=== PATIENT | male | born 1970 | race Caucasian/White ===

== ENCOUNTER → 2025-01-03 15:41 | Outpatient (REF) | payer BC, SELFPAY | LOC: HWRCS 15:41 | PROVIDERS: ATTENDING PHYSICIAN Internal Medicine Cardiovascular Disease; FAMILY PHYSICIAN Internal Medicine | DX: I47.10 Supraventricular tachycardia, unspecified (principal); R06.02 Shortness of breath | CPT/HCPCS: 93306 ==

== ENCOUNTER 2025-02-20 08:31 | Day surgery (SDC) | payer BC, SELFPAY ==
[2025-01-23 09:08] VITALS: BMI 25.8
[2025-01-23 09:39] LABS: Hematocrit 41.9 % (39.0-52.0); Hemoglobin 14.4 g/dL (13.0-18.0); Mean Corp Hgb Conc. 34.4 g/dL (33.0-37.0); Mean Corpuscular Volume 83.8 fL (80.0-94.0); Nucleated Red Blood Cells % 0 % (-); Platelet Count 278 10^3/uL (130-400); Red Cell Dist. Width 12.2 % (11.5-14.5)
[2025-01-23 09:43] LABS: ALT (SGPT) 38 U/L (0-50); AST (SGOT) 28 U/L (17-59); Albumin 4.7 g/dl (3.5-5.0); Alkaline Phosphatase 59 U/L (38-126); Blood Urea Nitrogen 15 mg/dl (9-20); Calcium 9.6 mg/dl (8.4-10.2); Carbon Dioxide 29 mmol/L (22-30); Chloride 102 mmol/L (98-107); Estimated Creatinine Clearance 62 ml/min; Glucose 99 mg/dl (70-99); Magnesium 2.1 mg/dl (1.6-2.3); Potassium 4.4 mmol/L (3.5-5.1); Sodium 140 mmol/L (135-145); Total Protein 7.7 g/dl (6.3-8.2); eGFR > 60.00
[2025-02-20] VITALS (11 sets, daily range): BP systolic 111–144; BP diastolic 74–95; BMI 25.8
--- NOTE | 2025-02-20 11:12 | ITS.CL.ABL ---
[employer] - Ablation
Ablation
Procedure Report:
Primary Physician: Dr Castillo
Primary Occupational Therapy Aide: Dr Marty Richardson
Procedure Date: 02/20/2025
Procedure
Electrophysiology Study with SVT ablation (46035)
Left atrial recording / pacing
IV drug for arrhythmia induction
Patient History
See H&P for full details
Patient is a pleasant 54 year old male with a past medical history significant for hypertension, palpitations, paroxysmal SVT (narrow complex, short RP terminated with adenosine and vagal maneuvers).
Method:
After informed consent was obtained, the patient was brought to the EP lab in a post-absorptive, non-sedated state. A peripheral IV was in place. Continuous electrocardiography, blood pressure and pulse oximetry monitoring was initiated and
cardioversion / defibrillator electrodes were positioned on the chest in an AP orientation. A 'time-out' was called. Conscious sedation was administered with the assistance of the anesthesia services, and local anesthesia was given at the femoral
vein access sites.
Using modified Seldinger technique, vascular access was achieved and sheaths were placed. Multipolar catheters were advanced to the coronary sinus, His bundle recording position, right ventricle, and high right atrium. Following the determination
of baseline conduction intervals, comprehensive EP study was performed. Pacing and recording from the RV, HBE, and CS / LA was performed.
Procedure Synopsis:
The patient entered the room in sinus rhythm. Following placement of catheters coronary sinus, His bundle region, and RV apex, electrophysiology study was performed. Threshold testing was performed for each catheter. Patient was noted to have VA
Wenckebach cycle length of 670 ms. Patient had an AV melvin one-to-one cycle at the 510 ms. Para-Hisian pacing demonstrated a melvin response. Patient was noted to have initial fast pathway ERP at 600/450 ms with AH jump this persisted. Patient
was noted to have 2 echo beats during this drivetrain and single atrial extrastimulus. Isoproterenol was started. Patient had induction of clinical tachycardia at 600/320 ms. Tachycardia cycle length was 360 ms. This was a narrow complex
tachycardia, a�on�V tachycardia. With ventricular overdrive pacing, a VAV response was noted. PPI minus TCL was greater than 115 with an SA minus VA time of greater than 85. 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 Tachycardia
was terminated with ventricular overdrive pacing. Heparin was given for an ACT 300�400. Short 9 German sheath was exchanged for a steerable 11.5 German sheath. HD advisor grid was advanced into the right atrium. Electroanatomic mapping was
performed of the right atrium and sinus rhythm. Careful attention was placed to the his bundle region, tricuspid annulus, and coronary sinus. Slow pathway was mapped using HD advisor grid. HD grid was removed and TactiFlex SE DF irrigated
ablation catheter was advanced into the right atrium. Ablation was performed in the region of the slow pathway arising no higher than the midpoint of the coronary sinus ostium along the septum with A: V ratio 1:3�1: 5. Ablation was performed at 25
W with careful monitoring of impedance, temperature, and AV conduction. During ablation, patient was noted to have stable junctional with persistent AV conduction. Measurements of AH and HV intervals were performed throughout procedure which
remained unchanged. Following completion of ablation, patient was noted to have persistent one-to-one AV conduction. Isoproterenol was infused. Testing performed demonstrated no AH jump, echo beats, or induction of arrhythmia. 8 minutes after
final ablation lesion, with isoproterenol infusing, patient was noted to have 2: 1 AV conduction. Patient remained hemodynamically stable. Sedation was reduced and isoproterenol was discontinued. Patient had pentecostal of one-to-one conduction
during waiting phase. Change in AV conduction likely related to catheter bump against this bundle with isoproterenol infusion. Following pentecostal of one-to-one conduction, no further episodes of AV block were noted. AH and HV intervals were
measured which remained without significant change from start of procedure. Case was concluded and catheters were removed under fluoroscopy. One-to-one conduction persisted. Protamine was given for reversal. Hemostasis achieved with
ozhkvx-jw-yqtbn suture and manual pressure.
Fluoroscopy time:
5.2 min; 11.57 mGy; DAP 2.21
Total RF time:
8 min 28s
Estimated Blood Loss
5 mL
Complications
None
At the end of the procedure, all catheters and sheaths were removed and hemostasis was assured with jdwyjx-mc-wrndr suture for each groin and manual pressure. The patient was returned to the recovery area in stable condition.
Access Sites:
Left Femoral Vein: 2 sheaths (7 Fr, 6 Fr)
Right Femoral Vein: 2 sheaths (9 Fr upsized to 11.5 Fr, 6 Fr)
Baseline Intervals:
Rhythm: SR
NJ: 164 ms
AH: 86 ms
HV: 46 ms
QRS: 106 ms
QT: 425 ms
QTc: 414 ms
A-A: 1055 ms
R-R: 1055 ms
Post-Procedure Intervals:
NJ: 182 ms
AH: 88 ms
HV: 53 ms
QRS: 99 ms
QT: 366 ms
QTc: 431 ms
A-A: 721 ms
R-R: 721 ms
AV Conduction:
- AVWB: 510 ms
- VAWB: 670 ms
Refractory Periods:
- AVNERP: 600/300 ms
Recommendations:
- Bedrest with straight-leg precautions as ordered
- Admit with anticipate discharge home tomorrow after overnight observation
- Discontinue diltiazem
- Plan for follow-up in office as scheduled
Horace Sharma, , FACC, RS
Clinical Cardiac Electrophysiology
cc: Dr Jer Castillo; Dr Marty Richardson
[2025-02-20 12:23] LABS: ACT-LR - POC 229 Seconds (116-155)
[2025-02-20 12:42] LABS: ACT-LR - POC 343 Seconds (116-155)
[2025-02-20 13:08] LABS: ACT-LR - POC 327 Seconds (116-155)
[2025-02-20 13:39] LABS: ACT-LR - POC 279 Seconds (116-155)
[2025-02-20 14:03] LABS: ACT-LR - POC 260 Seconds (116-155)
[2025-02-20 14:10] LABS: ACT-LR - POC 186 Seconds (116-155)
--- NOTE | 2025-02-20 14:37 | PTCARENOTE ---
Received pt from label tacker. TERE, SR on tele monitor. B/L groin dressings CDI. +pedal pulses. Pt educated on restrictions and expected OOB time. Call contreras within reach.
--- NOTE | 2025-02-20 15:18 | CM ---
Reviewed chart, Met with and Mrs. Sabillon to review discharge plans. He states prior to admission he resides with his spouse in a two story home with six steps to enter. He states he has a full flight of steps to get to bedroom/full bathroom.
He states he has a powder room on the first floor He states prior to admission he was independent with ambulation and adls. He states he does not have any DME in the home. He states he has a prescription plan and uses [facility]. The discharge
plan is to return home with his spouse when medically stable.
--- NOTE | 2025-02-20 22:04 | PTCARENOTE ---
Received pt @ change of shift. AAOx3, VSS-- NSR w/ 1st degree AV block on monitor. Bilateral groin sites clean, dry, and intact. No swelling, ecchymosis, or hematoma present @ this time. Discussed plan of care. Pt verbalizes understanding. Plan of
care ongoing. Call contreras within reach.
--- NOTE | 2025-02-20 23:00 | PTCARENOTE ---
report received from previous RN, walking rounds done. pt ambulatory in room, AAOx4. pt denies any pain at this time. VSS. NSR on monitor, HR 60s-70s. +peripheral pulses. B/L groin sites stable, CDI. B/L breath sounds present. POX 98% on room air.
PIV intact and patent. see worklist for full assessment, VS, and interventions.
[2025-02-21 05:09] VITALS: BP 138/94
[2025-02-21 06:26] LABS: Hematocrit 40.2 % (39.0-52.0); Hemoglobin 13.9 g/dL (13.0-18.0); Mean Corp Hgb Conc. 34.6 g/dL (33.0-37.0); Mean Corpuscular Volume 83.2 fL (80.0-94.0); Platelet Count 264 10^3/uL (130-400); Red Cell Dist. Width 12.1 % (11.5-14.5)
[2025-02-21 06:49] VITALS: BP 134/112
[2025-02-21 06:51] VITALS: BP 142/88
[2025-02-21 06:55] LABS: Blood Urea Nitrogen 15 mg/dl (9-20); Calcium 9.4 mg/dl (8.4-10.2); Carbon Dioxide 27 mmol/L (22-30); Chloride 104 mmol/L (98-107); Estimated Creatinine Clearance 74 ml/min; Glucose 97 mg/dl (70-99); Magnesium 2.0 mg/dl (1.6-2.3); Potassium 4.5 mmol/L (3.5-5.1); Sodium 138 mmol/L (135-145); eGFR > 60.00
--- NOTE | 2025-02-21 09:17 | CM ---
Reviewed chart. Met with Mr. Sabillon to review discharge plans. He states he feels well and maybe able to go home soon. Prior to admission he resides with his spouse in a two story home with six steps to enter. He has a full flight of steps to get
to bedroom/full bathroom. He has a powder room on the first floor Prior to admission he was independent with ambulation and adls. He does not have any DME in the home. He has a prescription plan and uses [facility]. The discharge plan is to
return home with his spouse when medically stable.
--- NOTE | 2025-02-21 10:02 | W.PN.CARDCBS ---
Addendum entered and electronically signed by Guicho Weaver MD 02/21/25 10:16:
Patient seen and examined
Reviewed telemetry which demonstrates sinus rhythm and sinus bradycardia with rare blocked early coupled PACs overnight during sleeping hours. NH interval noted to be 196 ms on morning EKG. No signs of advanced AV block on overnight telemetry.
Patient feels well. No SVT was noted on the overnight telemetry either.
Examination:
H&T normocephalic atraumatic
JVP 6
Cor regular without murmur
Lungs clear to auscultation bilaterally
Abdomen soft nontender positive bowel sounds
No extremity edema
Primary Physician: Girish Castillo MD
Primary Practice Management Consultant: Marty Richardson MD
54 year old male with a past medical history significant for hypertension, palpitations, paroxysmal SVT (narrow complex, short RP terminated with adenosine and vagal maneuvers).
Impression:
Symptomatic paroxysmal SVT
post SVT ablation
2:1 HB intraprocedurally
HTN
h/o GIB
remote tobacco
Plan:
Reviewed details of procedure with his performing financial developer. Stable AV conduction this morning.
tele SR 1deg AVB, with occasional blocked PAC's while sleeping
groins stable
Will stop Diltiazem
Activity restrictions reviewed
He will have f/u apt Dr. Sharma in 2-4 weeks
continue cardiac care with Dr. Richardson
home today
Original Note:
Today's Communication / Plan
-
post SVT ablation
stable for d/c home
Impression / Plan
-
Primary Physician: Girish Castillo MD
Primary Practice Management Consultant: Marty Richardson MD
54 year old male with a past medical history significant for hypertension, palpitations, paroxysmal SVT (narrow complex, short RP terminated with adenosine and vagal maneuvers).
Impression:
Symptomatic paroxysmal SVT
post SVT ablation
2:1 HB intraprocedurally
HTN
h/o GIB
remote tobacco
Plan:
he underwent SVT ablation, 8 minutes after final ablation lesion, with isoproterenol infusing, patient was noted to have 2: 1 AV conduction for approximately 5min. He remained hemodynamically stable. Sedation was reduced and isoproterenol was
discontinued and he had buddhist of one-to-one conduction during the waiting phase.
tele SR 1deg AVB, with occasional blocked PAC's while sleeping
groins stable
Will stop Diltiazem
Activity restrictions reviewed
He will have f/u apt Dr. Sharma in 2-4 weeks
continue cardiac care with Dr. Richardson
home today
Progress Note - Practice Management Consultant
Subjective
Date of Service: February 21, 2025
denies cp, sob
Objective
Labs:
02/21/25 05:26
02/21/25 05:26
Labs
Hgb 13.9 g/dL (13.0-18.0) 02/21/25 05:26
Hct 40.2 % (39.0-52.0) 02/21/25 05:26
Plt Count 264 10^3/uL (130-400) 02/21/25 05:26
Sodium 138 mmol/L (135-145) 02/21/25 05:26
Potassium 4.5 mmol/L (3.5-5.1) 02/21/25 05:26
BUN 15 mg/dl (9-20) 02/21/25 05:26
Creatinine 1.1 mg/dL (0.7-1.3) 02/21/25 05:26
Glucose 97 mg/dl (70-99) 02/21/25 05:26
Vital Signs and I&O:
Vital Signs
Temp Pulse Resp BP Pulse Ox
97.8 F 71 20 142/88 100
02/21/25 06:49 02/21/25 08:00 02/21/25 06:49 02/21/25 06:51 02/21/25 06:49
Vital Signs
Temp Pulse Resp BP Pulse Ox
97.8 F 71 20 142/88 100
02/21/25 06:49 02/21/25 08:00 02/21/25 06:49 02/21/25 06:51 02/21/25 06:49
Intake & Output
02/19/25 02/20/25 02/21/25 02/22/25
06:59 06:59 06:59 06:59
Output Total 500 / 500
Balance -500 / -500
Physical Exam
Physical Exam
NAD< AOX3
s1, S2, RRR
CTAB, non labored, no wheeze
SNTND bsx4
b/l groins c/d/i no HT< soft
--- NOTE | 2025-02-21 11:16 | PTCARENOTE ---
Pt denies any discomfort, up walking in halls without problem. Pt seen by Dr.Harding arjun Kearney, SARIKA. Telemetry and IV device removed. Discharge instructions reviewed with pt regarding activity adn driving restrictions, wound care, reporting cares
and concerns and follow up appt's. Excellent understanding verbalized. Pt ambulated out with RN and was discharged to home .
--- NOTE | 2025-02-21 11:49 | W.DS.TRANS ---
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
-
Discharge Instructions:
Discharge Diagnosis/Procedures SVT post ablation
Diet Regular
Activity No strenuous activity
Additional Activity No stress or arguing by loved ones ;)
Driving Restrictions No driving for 24 hours
Instructions:
Stand-Alone Forms: DC Instructions- Cath/EP Lab
Changes to Home Medications: Yes
Discharge Medications:
Home Medication Changes
stopped dilitazem
Pending Results: No
== END 2025-02-21 10:55 | disposition home or self-care (01) ==
LOC: CATH 08:31
PROVIDERS: Nurse Practitioner Adult Health; ATTENDING PHYSICIAN Internal Medicine Cardiovascular Disease; FAMILY PHYSICIAN Internal Medicine; OTHER PHYSICIAN Internal Medicine Interventional Cardiology
DX: I47.10 Supraventricular tachycardia, unspecified (principal); I44.0 Atrioventricular block, first degree; I10 Essential (primary) hypertension; F17.290 Nicotine dependence, other tobacco product, uncomplicated; I48.91 Unspecified atrial fibrillation
CPT/HCPCS: C1732; C1730; C1894; C1892; C1766; 36415; 75572; 80048; 80053; 83735; 85025; 85027; 85347; 93005; 93653; Q9967

== ENCOUNTER 2025-02-22 16:19 | Emergency (ER) | payer BC, SELFPAY ==
[2025-02-22 16:57] VITALS: BP 160/83
[2025-02-22 19:35] VITALS: BP 159/91
[2025-02-22 19:39] VITALS: BMI 25.1
--- NOTE | 2025-02-22 19:45 | ED.GENMED ---
History of Present Illness
General
Chief Complaint: Chest Problem
Source: patient and family
Exam Limitations: none
Time Seen by Provider: 02/22/25 19:30
Nursing documentation reviewed up to this point in time: agreed with
History of Present Illness
History of Present Illness:
Patient status post cardiac ablation on February 20 secondary to SVT, discharged home yesterday after being observed for 24 hours secondary to intermittent episodes of secondary heart block, woke up this morning with chest palpitations. When he
checked his heart rate, it was noted to be in the 40s and 50s, with his baseline heart rate being in the 70s and 80s. Patient was evaluated by Dr. Weaver, cardiology, this afternoon. In the office, patient was noted to be in second-degree heart
block with bradycardia. Patient denies chest pain or shortness of breath. Denies dizziness. Denies diaphoresis. Patient otherwise is healthy without significant medical history.
Past History
Past History
ED Past Medical History: Arrthythmia (SVT)
Social History
Tobacco: Non-smoker
Review of Systems
Review of Systems
Allergies reviewed?: Yes
Constitutional: Reports no symptoms
EENT: Reports no symptoms
Respiratory: Reports no symptoms; Denies trouble breathing
Cardiac: Reports palpitations; Denies chest pain or diaphoresis
ABD/GI: Reports no symptoms; Denies nausea or vomiting
Musculoskeletal: Reports no symptoms
Skin: Reports no symptoms
Neurological: Reports no symptoms; Denies dizzy
Phy Exam
Physical Exam
Physical Exam:
Physical Exam
General: no apparent distress, not acutely ill. afebrile. bradycardia
Head: nc/at. eomi
Neck: supple. no meningeal signs.
Heart: s1/s2 regular rate and rhythm
Lungs: no acute respiratory distress. clear bilaterally
Abdomen: normal bowel sounds. not tender.
Neuro: alert and oriented x 3. no focal neurological deficits
Skin: no rash
Psychiatric: well kept. interactive and cooperative
Extremities: no edema. no calf tenderness.
Course
Orders/Labs/Results
Orders:
Orders
02/22/25 19:36
Electrocardiogram (*1) Urgent
Reason for Study: Abnormal EKG
EKG- Treatment ONCE
02/22/25 19:35
02/22/25 19:35
Vital Signs
Initial and Last Documented VS:
Initial Vital Signs
Temp Pulse Resp BP Pulse Ox
98.1 F 59 18 160/83 100
02/22/25 16:57 02/22/25 16:57 02/22/25 16:57 02/22/25 16:57 02/22/25 16:57
Last Documented Vital Signs
Temp Pulse Resp BP Pulse Ox
98.1 F 45 13 128/87 98
02/22/25 16:57 02/22/25 21:00 02/22/25 21:00 02/22/25 21:00 02/22/25 21:00
MDM/Problems Addressed
MDM/Problems Addressed:
EKG obtained in ED confirms secondary degree heart block. Fortunately, patient remains asymptomatic with normal blood pressure. After extended discussion with patient and family, patient requesting to be discharged home, as he is asymptomatic.
Patient would like to take it easy at home and consider whether or not to pursue pacemaker placement next week. Patient will wear heart rate monitoring watch, with alarm system in place for heart rate lower than 40 bpm. Pt does understand that
there is risk of progression to complete heart block and/or worsening conditions, upon leaving ED. Patient expresses understanding at time of discharge, to the care of his family, who is also aware of potentially worsening symptoms.
*Pulse Oximetry
SaO2: 100
Oxygen Mode of Delivery: Room air
Patient hypoxic: no
*EKG
Interpreted by ED Provider?: Yes
EKG Intrepretation Date: 02/22/25
Heart Rate: 47
Rate: bradycardiac
Rhythm: sinus
Hettinger: normal axis
Interval: second degree mobitz II
*Critical Care Note
Total Time (30-74mins, 75-104mins- exclusive of procedures): Not Applicable
ED Attending Note
-
Portions of this chart may have been created with voice recognition software.� Occasional wrong word or��sound alike� substitutions may have occurred due to the inherent limitations of voice recognition software.
Discharge Plan
Departure
Patient Disposition: Home (Routine Discharge)
Date of Disposition: 02/22/25
Time of Disposition: 21:03
Patient with high blood pressure during this ER visit?: Yes
Condition: Fair
Discharge Problem:
Heart block AV second degree
Instructions: Heart block in adults, Overview of heart arrhythmias
Referrals:
Horace Sharma, DO [Active, Cardiology]
Activity Restrictions/Additional Instructions:
As discussed, please follow-up with your trigonometry tutor for further evaluation and treatment. Please consider return to ED immediately with worsening symptoms, i.e. dizziness, shortness of breath, nausea, diaphoresis.
Interventions
Interventions:
*Risk Screen - Suicide Last Done: 02/22/25 16:57
*General Assessment Last Done: 02/22/25 19:39
*Neglect/Abuse Screening Last Done: 02/22/25 16:57
*ED COVID-19 Vaccine History Last Done: 02/22/25 16:57
*ED Influenza Vaccine History Last Done: 02/22/25 16:57
[facility] Fall Risk Assessment Tool Last Done: 02/22/25 19:36
*Nursing Disposition Last Done: 02/22/25 21:11
ED- Cardiac Assessment Last Done: 02/22/25 19:40
ED- Pulmonary Assessment Last Done: 02/22/25 19:38
Discharge Date and Time
Discharge Date/Time: 02/22/25 21:21
Print Language: INDONESIAN
[2025-02-22 20:00] VITALS: BP 177/77
[2025-02-22 21:00] VITALS: BP 128/87
== END 2025-02-22 21:21 | disposition home or self-care (01) ==
LOC: EMR 16:19
PROVIDERS: EMERGENCY PHYSICIAN Emergency Medicine; FAMILY PHYSICIAN Internal Medicine
DX: I44.1 Atrioventricular block, second degree (principal)
CPT/HCPCS: 99283; 93005